=== PATIENT | female | born 1990 | race African-American/Black ===

== ENCOUNTER 2018-07-13 16:21 | Outpatient (CLI) | payer OTHER ==
[~2018-07-13] VITALS: Ht 167.6 cm; Wt 91.2 kg
[2018-07-13 16:39] VITALS: BP 133/82
[2018-07-13] MEDS ORDERED: MAPA500T2 PO (16:44)
[2018-07-13 18:32] LABS: HEMATOCRIT 32.9 % (36.0-47.0); HEMOGLOBIN 10.1 g/dl (12.0-15.5); MEAN CORPUSCULAR HEMOGLOBIN 23.1 pg (27.0-33.0); MEAN CORPUSCULAR HGB CONC 30.7 g/dl (32.0-36.5); MEAN CORPUSCULAR VOLUME 75.3 fl (80.0-96.0); PLATELET COUNT, AUTOMATED 277 10^3/uL (150-450); RED BLOOD COUNT 4.37 10^6/uL (4.00-5.40); WHITE BLOOD COUNT 7.4 10^3/uL (4.0-10.0)
[2018-07-13 18:51] LABS: CHLAMYDIA DNA AMPLIFICATION NEGATIVE (NEGATIVE); GC DNA AMPLIFICATION NEGATIVE (NEGATIVE)
[2018-07-15 11:14] LABS: HIV 1&2 SCREEN CENTAUR NEGATIVE (NEGATIVE); RUBELLA IgG QUALITATIVE IMMUNE (IMMUNE)
[2018-07-17 00:06] LABS: HEMOGLOBIN A 98.2 % (96.4-98.8); HEMOGLOBIN A2 1.8 % (1.8-3.2); HGB SOLUBILITY Negative (Negative)
[2018-07-17] MEDS ORDERED: PREN27TA3 PO (14:13)
[2018-07-17] MEDS ORDERED: TYLE1TAB5 PO (14:13)
[2018-07-17] MEDS ORDERED: TYLE325T5 PO (14:13)
== END 2018-07-13 18:20 | disposition home or self-care (01) ==
LOC: M LDO 16:21 → M LDI 16:48 → M LDO 18:20
PROVIDERS: ATTEND Obstetrics & Gynecology
DX: O26.893 Other specified pregnancy related conditions, third trimester (principal); Z3A.37 37 weeks gestation of pregnancy; M54.9 Dorsalgia, unspecified
CPT/HCPCS: 36415; 82950; 83021; 85027; 85660; 86762; 86780; 86850; 86900; 86901; 87340; 87389; 87491; 87591; G0378; G0463

== ENCOUNTER 2018-07-24 06:03 | Inpatient (IN) | payer OTHER ==
[2018-07-24] VITALS (13 sets, daily range): BP systolic 104–150; BP diastolic 54–103
[~2018-07-24] VITALS: Ht 167.6 cm; Wt 92.0 kg
[~2018-07-24 06:03] MED LIST: MAPA500T2 PO; PREN27TA3 PO; TYLE1TAB5 PO; TYLE325T5 PO
[2018-07-24] MEDS ORDERED: LR 1,000 ML IV SCH ×2 (06:30→13:45)
[2018-07-24 06:50] LABS: HEMOGLOBIN 9.5 g/dl (12.0-15.5); MEAN CORPUSCULAR HEMOGLOBIN 22.9 pg (27.0-33.0); MEAN CORPUSCULAR HGB CONC 31.7 g/dl (32.0-36.5); MEAN CORPUSCULAR VOLUME 72.3 fl (80.0-96.0); PLATELET COUNT, AUTOMATED 310 10^3/uL (150-450); RED BLOOD COUNT 4.15 10^6/uL (4.00-5.40); WHITE BLOOD COUNT 7.9 10^3/uL (4.0-10.0)
[2018-07-24] MEDS ORDERED: BICITRA 30ML SOLN UDC PO ONE (07:45)
[2018-07-24] MEDS ORDERED: LR 1,000 ML IV ONE (07:45)
[2018-07-24] MEDS ORDERED: MORPHINE PRES-FREE INJ 10 MG/10 ML VIAL (J2274) As Ordered ONE (08:02)
[2018-07-24] MEDS ORDERED: OXYTOCIN INJ 10 UNITS/ML VIAL (J2590) As Ordered ONE ×2 (08:03→08:04)
[2018-07-24] MEDS ORDERED: ONDANSETRON 4MG/2ML VIAL (J2405) As Ordered ONE (08:52)
[2018-07-24] MEDS: PRENATAL VITAMINS CHEWABLE TABLET PO SCH (09:00)
[2018-07-24] MEDS ORDERED: MIDAZOLAM INJ 2 MG/2 ML VIAL (J2250) As Ordered ONE (09:03)
[2018-07-24] MEDS ORDERED: KETOROLAC 60 MG/2 ML VIAL (J1885) As Ordered ONE (09:14)
[2018-07-24] MEDS ORDERED: NALBUPHINE HCL 10 MG/ML AMP (J2300) IV PRN (10:30)
[2018-07-24] MEDS ORDERED: fentaNYL 100 MCG/2 ML INJECTION (J3010) IV PRN (10:30)
[2018-07-24] MEDS ORDERED: MEPERIDINE INJ 25 MG/ML VIAL (J2175) IV PRN (10:30)
[2018-07-24] MEDS ORDERED: RHOGAM 300 MCG (1500 IU) INJ (J2790) IM SCH (10:30)
[2018-07-24] MEDS ORDERED: NORCO, ANEXSIA 5/325MG TABLET (HYDROcodone/ACETAMINOPHEN) PO PRN (10:30)
[2018-07-24] MEDS ORDERED: ONDANSETRON 4MG/2ML VIAL (J2405) IV PRN (10:30)
[2018-07-24] MEDS ORDERED: PERCOCET 5MG/325MG TAB PO PRN (10:30)
[2018-07-24] MEDS ORDERED: MEASLES,MUMPS,RUBELLA VACCINE INJ (MMR-II) (90707) SC SCH (10:30)
[2018-07-24] MEDS ORDERED: ADACEL/BOOSTRIX VACCINE (DIPHTH/PERTUSS/ACELL/TETANUS)0.5ML SYR (90715) IM PRN (13:45)
[2018-07-24] MEDS: KETOROLAC 30 MG/ML VIAL (J1885) IV SCH ×2 (14:33→21:09)
[2018-07-24] MEDS: DOCUSATE SODIUM 100 MG CAP PO SCH (21:09)
[2018-07-25] MEDS: KETOROLAC 30 MG/ML VIAL (J1885) IV SCH (03:09)
[2018-07-25 06:04] VITALS: BP 122/69
--- NOTE | 2018-07-25 07:21 | IPNPDOC ---
Progress Note Date of Service: Jul 25, 2018 Progress Note Ms. Vallejo is a 28 yo G3 now P2 who underwent an uncomplicated ERLTCS yesterday and is currently recovering on the unit. She reports overall feeling well this morning. She has some abdominal soreness but the pain medications are helping. Lochia is diminishing. She is is ambulating and tolerating a regular diet. Vitals - VSS, afebrile, normotensive, non tachycardic General - AAOX3, sitting up in bed, NAD Abdomen - Incision covered, minimal strikethrough. Appropriate tenderness to palpation. Fundus firm at U-2. Extremities - No edema UO - Excellent Labs: Pre op H/H 9.5/30.0 ---> pending post op H/H Ms. Vallejo is doing well this morning and is making an appropriate post op recovery. Plan to remove stephenson today and monitor for DTV. Continue to encourage ambulation and breast feeding and IS use. Follow up AM CBC. Continue routine post / post operative care. Anticipate DC home tomorrow if meeting all criteria. Jeremy Bernal DO VS, I&O, 24H, Fishbone Vital Signs/I&O Vital Signs Date Time Temp Pulse Resp B/P (MAP) Pulse Ox O2 Delivery O2 Flow Rate FiO2 07/25/18 06:04 99.4 76 18 122/69 (86) 98 I&O- Last 24 Hours up to 6 AM 07/25/18 06:00 Intake Total 532 ml Output Total 2225 ml Balance -1693 ml Laboratory Data CBC/BMP JEREMY BERNAL DO Jul 25, 2018 07:21
[2018-07-25 07:31] LABS: HEMATOCRIT 25.2 % (36.0-47.0); HEMOGLOBIN 7.8 g/dl (12.0-15.5); MEAN CORPUSCULAR HEMOGLOBIN 22.4 pg (27.0-33.0); MEAN CORPUSCULAR VOLUME 72.4 fl (80.0-96.0); PLATELET COUNT, AUTOMATED 285 10^3/uL (150-450); RED BLOOD COUNT 3.48 10^6/uL (4.00-5.40); WHITE BLOOD COUNT 9.7 10^3/uL (4.0-10.0)
[2018-07-25] MEDS: PRENATAL VITAMINS CHEWABLE TABLET PO SCH (07:40)
[2018-07-25] MEDS: PERCOCET 5MG/325MG TAB PO PRN ×2 (07:43→18:19)
[2018-07-25 10:20] VITALS: BP 131/80
[2018-07-25] MEDS: IBUPROFEN 800 MG TAB PO SCH ×2 (12:09→18:20)
[2018-07-25] MEDS: DOCUSATE SODIUM 100 MG CAP PO SCH ×2 (12:30→20:45)
[2018-07-25 14:38] VITALS: BP 138/82
[2018-07-25 18:00] VITALS: BP 139/95
[2018-07-25 21:49] VITALS: BP 137/74
[2018-07-26 01:52] VITALS: BP 134/80
[2018-07-26] MEDS: IBUPROFEN 800 MG TAB PO SCH ×2 (02:51→11:13)
[2018-07-26 05:46] VITALS: BP 120/81
[2018-07-26] MEDS: PERCOCET 5MG/325MG TAB PO PRN (06:15)
[2018-07-26] MEDS: PRENATAL VITAMINS CHEWABLE TABLET PO SCH (08:17)
[2018-07-26] MEDS: DOCUSATE SODIUM 100 MG CAP PO SCH (08:17)
[2018-07-26] MEDS ORDERED: OXYC1TAB23 PO (09:46)
[2018-07-26] MEDS ORDERED: COLA100C5 PO (09:46)
[2018-07-26] MEDS ORDERED: IBUP-1114 PO (09:46)
--- NOTE | 2018-07-27 14:58 | RO ---
DATE OF OPERATION: 07/24/2018 SURGEON: Joanne Dejesus MD SAT INSTRUCTOR: Ray Bernal DO CLINICAL SERVICE: Obstetrics. INDICATIONS FOR OPERATION: Monie is a 28-year-old G2, now P 2-0-0-2, at 39 weeks 0 day, having a history of prior section that was performed for a nonreassuring heart tracing. We discussed trial of labor after section in the office versus electing for a repeat low transverse section, and she did want repeat section. PREOPERATIVE DIAGNOSIS: Single intrauterine at 39 weeks with history of prior section desiring repeat and declining trial of labor after (TOLAC). POSTOPERATIVE DIAGNOSIS: Single intrauterine at 39 weeks with history of prior section desiring repeat and declining trial of labor after . MATERIAL FORWARDED TO THE LABORATORY FOR EXAMINATION: None. DESCRIPTION OF FINDINGS: Female infant in occupational therapy (OT) presentation. scores 9 and 9. Weight 2990 grams or 6 pounds 9 ounces. Normal-appearing uterus, fallopian tubes, and ovaries. INFECTION CLASSIFICATION: 2. ESTIMATED BLOOD LOSS: 600 mL. INTRAVENOUS (IV) FLUIDS: 1700 mL. URINE OUTPUT: 200 mL of yellow clear urine. OPERATION PERFORMED: Repeat low transverse section. DESCRIPTION OF OPERATION: After obtaining consent, the patient was taken to the operating room. She had a category one heart rate tracing prior to going to the operating room (OR). Spinal anesthesia was administered. Dimas catheter and bilateral sequential compression devices were placed. She was prepped and draped in normal sterile fashion in dorsal supine position with a left lateral tilt. Time-out was performed to confirm patient name, date of , procedure, and indication. The surgical team, nursing staff, anesthesia were all in agreement. Spinal anesthesia was found to be adequate using an Allis clamp. She received 2 grams of IV Ancef prophylactically prior to starting the procedure. Pfannenstiel skin incision was made with the scalpel, carried through to the underlying layer of fascia. The fascia was incised in the midline, and the incision was extended laterally with Dow scissors. Superior and inferior aspects of the fascial incision were grasped with Poppy clamps, elevated, and the underlying rectus muscles were dissected off bluntly and sharply. Peritoneum was entered digitally, and the rectus muscles were in the midline. Peritoneal incision was extended superiorly and inferiorly with good visualization of the bladder. Bladder blade was inserted, and the vesicouterine peritoneum was identified, grasped with pickups, and entered sharply with Metzenbaum scissors. Incision was extended laterally, and bladder flap was created digitally. Bladder blade was reinserted, and the lower uterine segment was scored in a transverse fashion with a scalpel. The uterus was entered bluntly, and the incision was extended with traction with clear amniotic fluid noted. Bladder blade was removed, and the 's head was elevated to the level of the incision with use of vacuum that was only used briefly just to bring the 's head up to the level of the incision. Fundal pressure was applied in conjunction with the vacuum, and the head was delivered atraumatically in the OT position. The anterior shoulder, posterior shoulder, and corpus were delivered without difficulty after removing the vacuum. The nose and mouth were suctioned with bulb suction. Cord was clamped times two and cut. The infant was handed off to the awaiting pediatricians. There was terminal meconium noted only after the was delivered. Placenta was removed with traction on the cord and uterine massage, and the uterus was then exteriorized and cleared of all clot and debris. Uterine incision was repaired with 0 Vicryl suture in a running locking fashion. A second layer of 0 Monocryl was used to close the hysterotomy incision in imbricating fashion. Uterus was inspected, and the incision was noted to be not in the center of the lower uterine segment but actually towards the right lateral aspect. She did have continued areas of oozing, so a few more sutures were used placing [id number] with 0 Vicryl suture until the incision was completely hemostatic. Posterior cul-de-sac was irrigated. The uterus was returned to the abdomen. Gutters were cleared of all clots. Hemostasis was noted. We placed Sandrine along the incision line after noting continued hemostasis, but there was very very very slight oozing, which the Sandrine completely addressed upon observation. The peritoneum was closed using 3-0 Vicryl suture in a running fashion. The fascia was reapproximate with 0 Vicryl suture in a running fashion. Subcutaneous tissue was copiously irrigated. Kiara fascia was reapproximated using 3-0 Vicryl suture in a running fashion. Skin edges were reapproximated using three inverted interrupted stitches using 3-0 Vicryl suture, followed by a running subcuticular stitch using 4-0 Monocryl suture. The incision was cleaned using wet lap, dried with a dry lap. Steri-Strips were applied in usual fashion. Two strips of Telfa were layered on top of the Steri-Strips, followed by a dry sterile towel. Surgical drapes were removed. Sterile towel was removed. Pressure dressing was applied over the entire surgical incision. The vagina was cleared of all blood clot without active bleeding noted. Fundus was firm at U minus two. Sponge, lap, needle counts were all correct times two. T he procedure was without complications. The patient tolerated the procedure well and was taken to the recovery room on labor and delivery in stable condition.
--- NOTE | 2018-07-27 17:14 | DSES ---
DATE OF ADMISSION: 07/24/2018 DATE OF DISCHARGE: 07/26/2018 This is a 28-year-old 3, para 2 admitted for elective repeat lower section, delivered a live female infant, 6 pounds, 9 ounces, 2990 grams, of 9 and 9 at one and five minutes respectively. On her second postoperative day, we discussed phlebitis, cystitis, mastitis, endometritis and cellulitis, diet, exercise, pain management, perineal, breast and wound care. Her admitting hemoglobin 9.5, hematocrit 30.0, and platelets were 310. Discharge hemoglobin 7.8, hematocrit 25.2, and platelets are 285. On discharge, her blood pressure 120/81, respirations 14, pulse 73, temperature is 98.6. The rest examination is unremarkable. Normocephalic, atraumatic. Neck: Full range of motion. Pupils equal and reactive to light. Distal pulses are symmetric. No evidence of deep vein thrombosis (DVT), pulmonary embolism (PE), or superficial phlebitis. Chest is clear bilaterally to bases. No wheezes or rhonchi. No costovertebral angle (CVA) tenderness. Abdomen: Soft, uterus two below. Lochia is moderate and four quadrant bowel sounds are noted. Incision is clean and dry. Perineum is intact. She has no rash, lesions or pruritus. No arthralgia or myalgia. No complaint of joint pain. No cough, wheezes, shortness of breath, or dyspnea on exertion. No nausea, vomiting, diarrhea or constipation. No urgency, frequency or incontinence. She is feeling well, breast-feeding and is anxious for her home. She was discharged with medications and has a two-week incision check and a six-week check. In summary, term gestation, elective repeat section, live female . All questions were answered. The patient was discharged improved.
== END 2018-07-26 13:15 | disposition home or self-care (01) | DRG 773 ==
LOC: M LDI 06:03 → M OBS 12:13
PROVIDERS: ADMIT Obstetrics & Gynecology; ATTEND Obstetrics & Gynecology
PROC: 10D00Z1 Extraction of Products of Conception, Low, Open Approach (ICD-10-PCS; principal; 2018-07-24 08:30)
DX: O34.211 Maternal care for low transverse scar from previous cesarean delivery (principal); Z3A.39 39 weeks gestation of pregnancy; Z37.0 Single live birth

== ENCOUNTER 2018-08-01 21:57 | Emergency (ER) | payer OTHER ==
[~2018-08-01] VITALS: Ht 167.6 cm; Wt 90.9 kg
[~2018-08-01 21:57] MED LIST changes: +COLA100C5 PO; +IBUP-1114 PO; +OXYC1TAB23 PO
[2018-08-01 23:44] LABS: BASO % 0.2 % (0.0-1.0); EOS # 0.1 10^3/uL (0.0-0.50); HEMATOCRIT 26.9 % (36.0-47.0); HEMOGLOBIN 8.1 g/dl (12.0-15.5); LYMPH # 2.1 10^3/uL (1.5-6.5); LYMPH % 32.4 % (24.0-44.0); MEAN CORPUSCULAR HEMOGLOBIN 22.9 pg (27.0-33.0); MEAN CORPUSCULAR HGB CONC 30.1 g/dl (32.0-36.5); MEAN CORPUSCULAR VOLUME 76.2 fl (80.0-96.0); MONO # 0.4 10^3/uL (0.0-0.8); MONO % 5.3 % (0.0-5.0); NEUTROPHILS # 3.9 10^3/uL (1.8-7.7); NEUTROPHILS % 59.8 % (36.0-66.0); PLATELET COUNT, AUTOMATED 359 10^3/uL (150-450); RED BLOOD COUNT 3.53 10^6/uL (4.00-5.40); WHITE BLOOD COUNT 6.6 10^3/uL (4.0-10.0)
[2018-08-01] MEDS ORDERED: NS 1,000 ML IV ONE (23:45)
[2018-08-01] MEDS ORDERED: MORPHINE 4 MG/ML 1ML VIAL/SYRINGE (J2270) IV PRN (23:45)
[2018-08-02 00:07] LABS: ERYTHROCYTE SEDIMENTATION RATE 52 mm/hr (0-20)
[2018-08-02 00:24] LABS: ALBUMIN 2.5 GM/DL (3.2-5.2); ALT/SGPT 14 U/L (12-78); BILIRUBIN,TOTAL 0.4 MG/DL (0.2-1.0); BLOOD UREA NITROGEN 4 MG/DL (7-18); C REACTIVE PROTEIN QUANTITATIV 0.66 MG/DL (0.00-0.30); CALCIUM LEVEL 7.6 MG/DL (8.5-10.1); CARBON DIOXIDE LEVEL 25 MEQ/L (21-32); CHLORIDE LEVEL 108 MEQ/L (98-107); CREATININE FOR GFR 0.86 MG/DL (0.55-1.30); GLOMERULAR FILTRATION RATE > 60.0 (>60); GLUCOSE, FASTING 93 MG/DL (70-100); LIPASE 108 U/L (73-393); POTASSIUM SERUM 3.6 MEQ/L (3.5-5.1); SODIUM LEVEL 141 MEQ/L (136-145); TOTAL PROTEIN 6.5 GM/DL (6.4-8.2)
[2018-08-02] MEDS ORDERED: ISOVUE-370 76% 100ML VIAL (Q9967) As Ordered ONE (00:28)
--- NOTE | 2018-08-02 02:04 | REPVR ---
EXAM: CT Abdomen and Pelvis With Contrast EXAM DATE/TIME: 08/02/2018 12:47 AM CLINICAL HISTORY: 28 years old, female; Abdominal pain; Localized; Right lower quadrant (rlq); Prior surgery; Surgery date: 3-7 days post-operative; Surgery type: C- section 1 wk ago TECHNIQUE: Axial computed tomography images of the abdomen and pelvis with intravenous contrast. All CT scans at this facility use at least one of these dose optimization techniques: automated exposure control; mA and/or kV adjustment per patient size (includes targeted exams where dose is matched to clinical indication); or iterative reconstruction. Coronal and sagittal reformatted images were created and reviewed. CONTRAST: 100 ml of ISOVUE 370 administered intravenously. COMPARISON: No relevant prior studies available. FINDINGS: Lower thorax: Unremarkable. ABDOMEN: Liver: Unremarkable. No liver lesion is seen. The contour of the liver is smooth. No hepatomegaly is noted. Gallbladder and bile ducts: No calcified gallstones are seen. No gallbladder wall thickening, pericholecystic fluid, or pericholecystic inflammatory changes are identified. No dilation of the intrahepatic or extrahepatic bile ducts is noted. Pancreas: Normal. No ductal dilation. Spleen: Normal. No splenomegaly. Adrenals: Normal. No mass. Kidneys and ureters: The kidneys are normal in appearance. No renal lesion is identified. No calculi are seen in the kidneys or ureters. There is no hydronephrosis or hydroureter. There are no wedge-shaped areas of low attenuation in the kidneys to suggest pyelonephritis. There is no renal abscess or perinephric fluid collection. Stomach and bowel: There is no evidence for a bowel obstruction, strangulation, diverticulosis, diverticulitis, colitis, pneumatosis intestinalis, intussusception, volvulus, or perforated viscus. Appendix: Normal. No evidence for appendicitis. Retroperitoneal space: There is no retroperitoneal hemorrhage. PELVIS: Bladder: The distended urinary bladder is normal in appearance. No stones or masses are seen in the bladder. The contour of the bladder is normal. Reproductive: The anteverted uterus is enlarged, which is consistent with a recent post gravid state. There is a lower transverse section scar in the uterus. There are tiny foci of gas in the endometrial cavity and a small to moderate amount of fluid in the endometrial cavity. There is a 13 mm right ovarian cyst, which is most compatible with a follicular cyst. The left ovary is unremarkable. ABDOMEN and PELVIS: Intraperitoneal space: Normal. No free air. No fluid collection. Bones/joints: The imaged bony structures are intact. There is no suspicious osteolytic or osteoblastic lesion. There are degenerative changes involving the pubic symphysis since widening of the pubic symphysis by approximately 10 mm. Soft tissues: There is diastases of the rectus abdominis muscles and a large midline ventral hernia containing loops of small and large bowel. There is subcutaneous edema in the anterior abdominal wall. No drainable soft tissue fluid collection is noted. Vasculature: The abdominal aorta is normal in caliber and patent. The iliac arteries, common femoral arteries, renal arteries, celiac artery, superior mesenteric artery, and inferior mesenteric artery are patent. The renal veins, portal veins, splenic vein, superior mesenteric vein, and inferior mesenteric vein are patent. Lymph nodes: Normal. No enlarged lymph nodes. IMPRESSION: 1. Normal appendix. 2. Diastases of the rectus abdominis muscles and a large midline ventral hernia containing loops of small and large bowel. No bowel obstruction or strangulation. 3. Postoperative changes from a recent section, and there are tiny foci of gas in the endometrial cavity and a small to moderate amount of fluid in the endometrial cavity. 4. 13 mm follicular cyst in the right ovary. Electronically signed by: Ethan Luke On 08/02/2018 02:04:32 AM
[2018-08-02] MEDS ORDERED: NORCOTAB PO (02:19)
[2018-08-02 02:45] VITALS: BP 141/87
--- NOTE | 2018-08-10 20:52 | ED PDOC ---
Post-Departure Follow-Up kina rm faxed formal report of ct abd/p for fu Nika Iqbal MD Aug 10, 2018 20:52
== END 2018-08-02 03:34 | disposition home or self-care (01) ==
LOC: M ED 21:57
DX: N83.01 Follicular cyst of right ovary (principal); D50.0 Iron deficiency anemia secondary to blood loss (chronic); K43.9 Ventral hernia without obstruction or gangrene; J45.909 Unspecified asthma, uncomplicated; F33.9 Major depressive disorder, recurrent, unspecified; F41.9 Anxiety disorder, unspecified
CPT/HCPCS: 36415; 74177; 80053; 81001; 83605; 83690; 85025; 85652; 86140; 96361; 96374; 99284; J2270; Q9967

== ENCOUNTER 2018-10-23 14:17 | Emergency (ER) | payer OTHER ==
[~2018-10-23] VITALS: Ht 167.6 cm; Wt 87.3 kg
[2018-10-23 14:17] VITALS: BP_DIAS 92
[~2018-10-23 14:17] MED LIST changes: +HYDR-3715 PO
[2018-10-23] MEDS ORDERED: NEXP1IMP (14:22)
[2018-10-23] MEDS ORDERED: GNP650TA8 PO (14:22)
[2018-10-23] MEDS ORDERED: diphenhydrAMINE INJ 50MG/ML VIAL (J1200) IV STA (14:33)
[2018-10-23] MEDS ORDERED: METOCLOPRAMIDE INJ 10MG/2ML VIAL (J2765) IV ONE (14:45)
[2018-10-23] MEDS ORDERED: NS 1,000 ML IV ONE (14:45)
[2018-10-23] MEDS ORDERED: KETOROLAC 30 MG/ML VIAL (J1885) IV ONE (15:00)
[2018-10-23 17:16] VITALS: BP_SYST 81
--- NOTE | 2018-10-23 17:51 | REP ---
ULTRASOUND LEFT BREAST: Real-time sonographic evaluation of the left breast performed. The patient is currently breast feeding and has pain at the 4-o'clock to 6-o'clock region of the left breast. At that location, there is fibrocystic tissue with dilated ducts. No fluid collection or abscess is seen. No solid mass is seen. IMPRESSION: ACR 2 benign. Mildly dilated ducts without cystic or solid mass and no fluid collection or abscess. Electronically Signed by Ulysses Bach MD 10/28/2018 11:49 A
--- NOTE | 2018-11-03 13:23 | ED PDOC ---
Post-Departure Follow-Up ft eliecer ob faxed formal report of breast us for fu Nika Iqbal MD November 03, 2018 13:23
== END 2018-10-23 17:18 | disposition home or self-care (01) ==
LOC: M ED 14:17
DX: G43.909 Migraine, unspecified, not intractable, without status migrainosus (principal); N64.4 Mastodynia; J45.909 Unspecified asthma, uncomplicated; Z79.899 Other long term (current) drug therapy
CPT/HCPCS: 76642; 96361; 96374; 96375; 99284; J1200; J1885; J2765

== ENCOUNTER 2019-01-22 09:48 | Emergency (ER) | payer OTHER ==
[~2019-01-22] VITALS: Ht 167.6 cm; Wt 88.9 kg
[~2019-01-22 09:48] MED LIST changes: +GNP650TA8 PO; +NEXP1IMP
[2019-01-22] MEDS ORDERED: METH1TAB40 PO (09:56)
[2019-01-22] MEDS ORDERED: MEDR10TA PO (09:56)
[2019-01-22] MEDS ORDERED: INDO-16 PO (09:56)
[2019-01-22 10:34] LABS: BASO % 0.2 % (0.0-1.0); EOS # 0.1 10^3/uL (0.0-0.50); HEMATOCRIT 34.7 % (36.0-47.0); HEMOGLOBIN 10.4 g/dl (12.0-15.5); LYMPH # 1.6 10^3/uL (1.5-6.5); LYMPH % 36.1 % (24.0-44.0); MEAN CORPUSCULAR HEMOGLOBIN 23.1 pg (27.0-33.0); MEAN CORPUSCULAR VOLUME 76.9 fl (80.0-96.0); MONO # 0.2 10^3/uL (0.0-0.8); MONO % 3.6 % (0.0-5.0); NEUTROPHILS # 2.6 10^3/uL (1.8-7.7); NEUTROPHILS % 57.9 % (36.0-66.0); PLATELET COUNT, AUTOMATED 190 10^3/uL (150-450); RED BLOOD COUNT 4.51 10^6/uL (4.00-5.40); WHITE BLOOD COUNT 4.4 10^3/uL (4.0-10.0)
[2019-01-22 11:02] LABS: BLOOD UREA NITROGEN 11 MG/DL (7-18); CARBON DIOXIDE LEVEL 25 MEQ/L (21-32); CHLORIDE LEVEL 109 MEQ/L (98-107); CREATININE FOR GFR 0.96 MG/DL (0.55-1.30); GLOMERULAR FILTRATION RATE > 60.0 (>60); GLUCOSE, FASTING 98 MG/DL (70-100); HCG, SERUM QUALITATIVE NEGATIVE (NEGATIVE); POTASSIUM SERUM 3.9 MEQ/L (3.5-5.1); SODIUM LEVEL 141 MEQ/L (136-145)
[2019-01-22 13:41] VITALS: BP 142/85
[2019-06-11] MEDS ORDERED: DOCU100C16 PO (14:46)
[2019-06-11] MEDS ORDERED: MIRA3350 PO (14:46)
== END 2019-01-22 13:42 | disposition home or self-care (01) ==
LOC: M ED 09:48
DX: N93.8 Other specified abnormal uterine and vaginal bleeding (principal)

== ENCOUNTER 2019-03-19 20:04 | Emergency (ER) | payer OTHER ==
[~2019-03-19] VITALS: Ht 167.6 cm; Wt 89.1 kg
[~2019-03-19 20:04] MED LIST changes: +INDO-16 PO; +MEDR10TA PO; +METH1TAB40 PO
[2019-03-19] MEDS ORDERED: NS 1,000 ML IV ONE (21:00)
[2019-03-19 21:48] LABS: HEMATOCRIT 32.9 % (36.0-47.0); HEMOGLOBIN 9.8 g/dl (12.0-15.5); MEAN CORPUSCULAR HEMOGLOBIN 22.7 pg (27.0-33.0); MEAN CORPUSCULAR HGB CONC 29.8 g/dl (32.0-36.5); MEAN CORPUSCULAR VOLUME 76.3 fl (80.0-96.0); PLATELET COUNT, AUTOMATED 388 10^3/uL (150-450); RED BLOOD COUNT 4.31 10^6/uL (4.00-5.40); WHITE BLOOD COUNT 5.5 10^3/uL (4.0-10.0)
[2019-03-19 22:14] LABS: ALBUMIN 3.9 GM/DL (3.2-5.2); BILIRUBIN,DIRECT 0.1 MG/DL (0.0-0.2); BILIRUBIN,TOTAL 0.4 MG/DL (0.2-1.0); TOTAL PROTEIN 8.2 GM/DL (6.4-8.2)
[2019-03-19] MEDS ORDERED: ISOVUE-370 76% 100ML VIAL (Q9967) As Ordered ONE (22:16)
--- NOTE | 2019-03-19 23:01 | REPVR ---
PROCEDURE INFORMATION: Exam: CT Abdomen and pelvis with contrast Exam date and time: 03/19/2019 10:34 PM Clinical history: 29 years old, female; Abdominal pain; Generalized; Prior surgery; Surgery date: <1 month; Surgery type: Hernia repair sept 10th; Additional info: Diffuse abdominal pain, following hernia repair TECHNIQUE: Imaging protocol: Computed tomography of the abdomen and pelvis with intravenous contrast. Radiation optimization: All CT scans at this facility use at least one of these dose optimization techniques: automated exposure control; mA and/or kV adjustment per patient size (includes targeted exams where dose is matched to clinical indication); or iterative reconstruction. Contrast material: ISOVUE 370; Contrast volume: 100 ml; Contrast route: IV; COMPARISON: CT ABD/PEL W/IV CONTRAST ONLY 08/02/2018 12:33 AM FINDINGS: Liver: There is a diffuse decrease in hepatic parenchymal density, consistent with fatty infiltration. Gallbladder and bile ducts: The gallbladder is incompletely distended. This is most likely related to incomplete fasting. Clinical correlation to exclude gallbladder pathology suggested. Pancreas: Normal. No ductal dilation. Spleen: Normal. No splenomegaly. Adrenals: Normal. No mass. Kidneys and ureters: Normal. No hydronephrosis. Stomach and bowel: There is increased feces throughout the colon consistent with constipation. Appendix: No evidence of appendicitis. Intraperitoneal space: Unremarkable. No free air. No significant fluid collection. Vasculature: Unremarkable. No abdominal aortic aneurysm. Lymph nodes: Unremarkable. No enlarged lymph nodes. Bladder: Unremarkable as visualized. Reproductive: System the left ovary measures 3.5 cm likely representing a functional cyst. Bones/joints: Unremarkable. No acute fracture. Soft tissues: The ventral abdominal wall hernia. Increased density demonstrated in the periumbilical soft tissues possibly secondary to recent surgery. Infection and/or incarceration of a recurrent hernia to be excluded clinically. IMPRESSION: 1. There is a diffuse decrease in hepatic parenchymal density, consistent with fatty infiltration. 2. The gallbladder is incompletely distended. This is most likely related to incomplete fasting. Clinical correlation to exclude gallbladder pathology suggested. 3. The ventral abdominal wall hernia. Increased density demonstrated in the periumbilical soft tissues possibly secondary to recent surgery. Infection and/or incarceration of a recurrent hernia to be excluded clinically. 4. There is increased feces throughout the colon consistent with constipation. Electronically signed by: Lior Gary On 03/19/2019 23:00:32 PM
[2019-03-20 00:01] VITALS: BP 156/100
== END 2019-03-20 00:03 | disposition home or self-care (01) ==
LOC: M ED 20:04
DX: K59.00 Constipation, unspecified (principal); K43.9 Ventral hernia without obstruction or gangrene; K62.5 Hemorrhage of anus and rectum; D64.9 Anemia, unspecified; R11.0 Nausea; Z98.890 Other specified postprocedural states; I10 Essential (primary) hypertension; K64.9 Unspecified hemorrhoids; K60.2 Anal fissure, unspecified; Z87.42 Personal history of other diseases of the female genital tract
CPT/HCPCS: 36415; 74177; 80047; 80076; 81002; 81025; 83690; 85027; 93005; 96360; 96361; 99284; G0463; Q9967

== ENCOUNTER 2019-05-07 10:55 | Emergency (ER) | payer OTHER ==
[~2019-05-07] VITALS: Ht 167.6 cm; Wt 90.4 kg
[2019-05-07] MEDS ORDERED: BCP PO (11:00)
[2019-05-07] MEDS ORDERED: PRED10TA2 PO (15:52)
[2019-05-07] MEDS ORDERED: GABA-843 PO (15:52)
[2019-05-07] MEDS ORDERED: GABAPENTIN 300 MG CAP PO ONE (16:00)
[2019-05-07] MEDS ORDERED: predniSONE 20 MG TAB PO ONE (16:00)
[2019-05-07 16:12] VITALS: BP 143/94
== END 2019-05-07 16:13 | disposition home or self-care (01) ==
LOC: M ED 10:55
DX: M54.42 Lumbago with sciatica, left side (principal); M25.552 Pain in left hip; Z79.3 Long term (current) use of hormonal contraceptives

== ENCOUNTER 2019-06-29 12:33 | Day surgery (SDC) | payer OTHER ==
[~2019-06-29] VITALS: Ht 167.6 cm; Wt 84.8 kg
[~2019-06-29 12:33] MED LIST changes: +BCP PO; +DOCU100C16 PO; +GABA-843 PO; +MIRA3350 PO; +NS 1,000 ML IV ONE; +PRED10TA2 PO
[2019-06-29] MEDS ORDERED: propofoL 200 MG/20 ML VIAL As Ordered ONE (13:57)
[2019-06-29] MEDS ORDERED: LIDOCAINE 2% INJ 100 MG/5 ML SDV (FOR ANES.) As Ordered ONE (13:57)
--- NOTE | 2019-06-29 15:08 | ROOR ---
Patient Name: Monie Vallejo Procedure Date: 06/29/2019 2:22 PM Date of : 1990 Age: 29 Room: [facility] Gender: Female Note Status: Finalized Procedure: Upper GI endoscopy Indications: Heartburn, Suspected gastro-esophageal reflux disease Providers: Gentry Larose MD Referring MD: MAT RIVERO MD Requesting Provider: Medicines: Monitored Anesthesia Care Complications: No immediate complications. Procedure: Pre-Anesthesia Assessment: - Prior to the procedure, a History and Physical was performed, and patient medications and allergies were reviewed. The patient is competent. The risks and benefits of the procedure and the sedation options and risks were discussed with the patient. All questions were answered and informed consent was obtained. Patient identification and proposed procedure were verified by the physician, the nurse and the anesthesiologist in the procedure room. Mental Status Examination: alert and oriented. Airway Examination: normal oropharyngeal airway and neck mobility. Respiratory Examination: clear to auscultation. CV Examination: normal. Prophylactic Antibiotics: The patient does not require prophylactic antibiotics. Prior Anticoagulants: The patient has taken no previous anticoagulant or antiplatelet agents. ASA Grade Assessment: III - A patient with severe systemic disease. After reviewing the risks and benefits, the patient was deemed in satisfactory condition to undergo the procedure. The anesthesia plan was to use monitored anesthesia care (MAC). Immediately prior to administration of medications, the patient was re-assessed for adequacy to receive sedatives. The heart rate, respiratory rate, oxygen saturations, blood pressure, adequacy of pulmonary ventilation, and response to care were monitored throughout the procedure. The physical status of the patient was re-assessed after the procedure. The Endoscope was introduced through the mouth, and advanced to the second part of duodenum. The upper GI endoscopy was accomplished without difficulty. The patient tolerated the procedure well. Findings: The examined esophagus was normal. The Z-line was regular and was found 38 cm from the incisors. Scattered mild inflammation characterized by erythema, friability and granularity was found in the gastric antrum. Biopsies were taken with a cold forceps for Helicobacter pylori testing. Verification of patient identification for the specimen was done by the physician and nurse using the patient's name, date and medical record number. Estimated blood loss was minimal. The duodenal bulb and second portion of the duodenum were normal. Impression: - Normal esophagus. - Z-line regular, 38 cm from the incisors. - Gastritis. Biopsied. - Normal duodenal bulb and second portion of the duodenum. Recommendation: - Patient has a contact number available for emergencies. The signs and symptoms of potential delayed complications were discussed with the patient. Return to normal activities tomorrow. Written discharge instructions were provided to the patient. - Resume previous diet. - Continue present medications. - Follow an antireflux regimen. - Await pathology results. - Telephone GI clinic for pathology results in 2 weeks. - Return to GI clinic if persistent symptoms or new symptoms. - Return to primary care physician. Gentry Larose MD Gentry Larose MD 06/29/2019 3:08:20 PM Electronically signed by Gentry Larose MD Number of Addenda: 0 Note Initiated On: 06/29/2019 2:22 PM Estimated Blood Loss: Estimated blood loss was minimal.
--- NOTE | 2019-06-29 15:14 | ROOR ---
Patient Name: Monie Vallejo Procedure Date: 06/29/2019 2:24 PM Date of : 1990 Age: 29 Room: [facility] Gender: Female Note Status: Finalized Procedure: Colonoscopy Indications: Hematochezia, Iron deficiency anemia Providers: Gentry Larose MD Referring MD: MAT RIVERO MD Requesting Provider: Medicines: Monitored Anesthesia Care Complications: No immediate complications. Procedure: Pre-Anesthesia Assessment: - Prior to the procedure, a History and Physical was performed, and patient medications and allergies were reviewed. The patient is competent. The risks and benefits of the procedure and the sedation options and risks were discussed with the patient. All questions were answered and informed consent was obtained. Patient identification and proposed procedure were verified by the physician, the nurse and the anesthesiologist in the procedure room. Mental Status Examination: alert and oriented. Airway Examination: normal oropharyngeal airway and neck mobility. Respiratory Examination: clear to auscultation. CV Examination: normal. Prophylactic Antibiotics: The patient does not require prophylactic antibiotics. Prior Anticoagulants: The patient has taken no previous anticoagulant or antiplatelet agents. ASA Grade Assessment: II - A patient with mild systemic disease. After reviewing the risks and benefits, the patient was deemed in satisfactory condition to undergo the procedure. The anesthesia plan was to use monitored anesthesia care (MAC). Immediately prior to administration of medications, the patient was re-assessed for adequacy to receive sedatives. The heart rate, respiratory rate, oxygen saturations, blood pressure, adequacy of pulmonary ventilation, and response to care were monitored throughout the procedure. The physical status of the patient was re-assessed after the procedure. The Colonoscope was introduced through the anus and advanced to the terminal ileum, with identification of the appendiceal orifice and IC valve. The colonoscopy was performed without difficulty. The patient tolerated the procedure well. The quality of the bowel preparation was good. The terminal ileum, ileocecal valve, appendiceal orifice, and rectum were photographed. Scope insertion time was 3 minutes. Scope withdrawal time was 9 minutes. The total duration of the procedure was 12 minutes. Findings: The perianal and digital rectal examinations were normal. The terminal ileum appeared normal. A 8 mm polyp was found in the transverse colon. The polyp was sessile. The polyp was removed with a cold snare. Resection and retrieval were complete. Verification of patient identification for the specimen was done by the physician and nurse using the patient's name, date and medical record number. Estimated blood loss was minimal. Non-bleeding external and internal hemorrhoids were found during retroflexion. The hemorrhoids were medium-sized. Impression: - The examined portion of the ileum was normal. - One 8 mm polyp in the transverse colon, removed with a cold snare. Resected and retrieved. - Non-bleeding external and internal hemorrhoids. Recommendation: - Patient has a contact number available for emergencies. The signs and symptoms of potential delayed complications were discussed with the patient. Return to normal activities tomorrow. Written discharge instructions were provided to the patient. - High fiber diet. - Continue present medications. - Use fiber, for example Citrucel, Fibercon, Konsyl or Metamucil. - Await pathology results. - Repeat colonoscopy in 5-10 years for surveillance based on pathology results. - Telephone GI clinic for pathology results in 2 weeks. - Follow up with LOCAL OPERATOR for heavy menstrual bleeding. ( Anemia likely from menorrhagia). - Return to GI clinic if persistent symptoms or new symptoms. - Return to primary care physician. Gentry Larose MD Gentry Larose MD 06/29/2019 3:13:42 PM Electronically signed by Gentry Larose MD Number of Addenda: 0 Note Initiated On: 06/29/2019 2:24 PM Estimated Blood Loss: Estimated blood loss was minimal.
[2019-06-29 15:34] VITALS: BP 134/99
== END 2019-06-29 15:33 | disposition home or self-care (01) ==
LOC: M OPP 12:33
PROVIDERS: ATTEND Internal Medicine Gastroenterology
DX: K64.8 Other hemorrhoids (principal); D12.3 Benign neoplasm of transverse colon; K92.1 Melena; D50.9 Iron deficiency anemia, unspecified; K29.70 Gastritis, unspecified, without bleeding; R12 Heartburn; K21.9 Gastro-esophageal reflux disease without esophagitis

== ENCOUNTER 2019-07-06 08:36 | Day surgery (SDC) | payer OTHER ==
[~2019-07-06] VITALS: Ht 165.1 cm; Wt 87.9 kg
[~2019-07-06 08:36] MED LIST changes: +KETOROLAC 60 MG/2 ML VIAL (J1885) As Ordered ONE; +LIDOCAINE 2% INJ 100 MG/5 ML SDV (FOR ANES.) As Ordered ONE; +LR 1,000 ML IV ONE; -NS 1,000 ML IV ONE; +ONDANSETRON 4MG/2ML VIAL (J2405) As Ordered ONE; +ROCURONIUM BROMIDE 50 MG/5 ML VIAL As Ordered ONE; +dexameTHASONE 4 MG/ML 1ML VIAL (J1100) As Ordered ONE; +propofoL 200 MG/20 ML VIAL As Ordered ONE
[2019-07-06 09:01] LABS: HEMATOCRIT 34.5 % (36.0-47.0); HEMOGLOBIN 10.3 g/dl (12.0-15.5)
[2019-07-06 09:34] LABS: HCG, SERUM QUALITATIVE NEGATIVE (NEGATIVE)
[2019-07-06] MEDS ORDERED: fentaNYL 250 MCG/5 ML INJECTION (J3010) As Ordered ONE (10:30)
[2019-07-06] MEDS ORDERED: MIDAZOLAM INJ 2 MG/2 ML VIAL (J2250) As Ordered ONE (10:30)
[2019-07-06] MEDS ORDERED: BUPIVACAINE HCL 0.25% 30 ML VIAL As Ordered ONE (10:32)
[2019-07-06] MEDS ORDERED: SUGAMMADEX SODIUM 500 MG/5 ML VIAL (BRIDION) As Ordered ONE (10:56)
[2019-07-06] MEDS ORDERED: dexameTHASONE 4 MG/ML 1ML VIAL (J1100) As Ordered ONE (11:34)
[2019-07-06] MEDS: fentaNYL 100 MCG/2 ML INJECTION (J3010) IV PRN ×4 (12:15→12:30)
[2019-07-06] MEDS ORDERED: PERCOCET 5MG/325MG TAB As Ordered ONE (12:17)
[2019-07-06] MEDS ORDERED: fentaNYL 100 MCG/2 ML INJECTION (J3010) As Ordered ONE (12:17)
[2019-07-06] MEDS ORDERED: ONDANSETRON 4MG/2ML VIAL (J2405) IV PRN (12:30)
[2019-07-06] MEDS ORDERED: LR 1,000 ML IV SCH (12:30)
[2019-07-06] MEDS ORDERED: PERCOCET 5MG/325MG TAB PO PRN (12:45)
[2019-07-06 14:43] VITALS: BP 134/87
--- NOTE | 2019-07-06 23:11 | RO ---
DATE OF PROCEDURE: 07/06/2019 SURGEON: Joanne Dejesus MD BEEHIVE KILN CHARCOAL BURNER: Dr. Zheng Baum CLINICAL SERVICE: Gynecology INDICATION FOR OPERATION: Monie is a 29-year-old G2 who has a history of abnormal bleeding, treating with oral contraceptive pill, as well as dysmenorrhea, dyspareunia and pelvic pain. She has done pelvic floor physical therapy, but has continued to have pain and dyspareunia. She has a history of fairly recent umbilical hernia repair that involved mesh, and her history is also significant for two prior sections. PREOPERATIVE DIAGNOSIS: Pelvic pain, dysmenorrhea, dyspareunia. POSTOPERATIVE DIAGNOSIS: Pelvic pain, dysmenorrhea, dyspareunia. Pelvic adhesions. MATERIAL FORWARDED TO THE LAB: None. DESCRIPTION OF FINDINGS: Laparoscopic findings included a normal appearing liver edge and gallbladder. There was a fairly dense adhesion of the omentum to the umbilical area, likely secondary to her (dictation cut off). The fallopian tubes (dictation cut off) ovaries were normal in appearance. The uterus was overall normal in appearance with the exception of scar tissue on the anterior portion consistent with her prior sections. As well, there was an adhesion of the peritoneum to the left aspect of the healed hysterotomy site, but did have some tension to it whereas the right side of the uterus was fairly freely mobile using the uterine manipulator, so we did some lysis of adhesions on the left aspect of the uterus. INFECTION CLASSIFICATION: 2. ESTIMATED BLOOD LOSS: 10 mL. IV FLUIDS: 800 mL lactated Ringer's. URINE OUTPUT: 200 mL of clear yellow urine. OPERATION PERFORMED: Diagnostic laparoscopy, operative laparoscopy with lysis of adhesions. DESCRIPTION OF OPERATION: After obtaining informed consent, Monie was taken to the operating room. General endotracheal anesthesia was established. The patient was placed in low lithotomy position. She was prepped and draped in the usual sterile fashion. Dimas catheter was placed. [place] speculum was placed in the vagina, and visualization of the cervix was obtained. Anterior lip of the cervix was grasped with a single-tooth tenaculum. Cervix was sequentially dilated using Hanks dilators, uterus then sounded to 8 cm. [place] uterine manipulator was placed through the cervix into the uterus and the tenaculum was removed with site hemostasis noted. The bivalve speculum at that point was removed. I then turned my attention to the abdominal portion of the case. A 5 mm incision was made at two fingerbreadths below the left subcostal margin at the midclavicular line given that the patient had a history of hernia repair at the umbilicus. This site was anesthetized with 0.25% Marcaine prior to making the 5 mm incision, and and OptiView trocar was used at a 90-degree angle, advancing the laparoscope through the port and confirming intra-abdominal placement. There was no injury noted below the point of entry. Continuous low carbon dioxide began to establish pneumoperitoneum at 15 mmHg pressure. At that point, we immediately noted the dense adhesion of omentum to the umbilical area, but I was able to move the camera around that area to observe the pelvic organs. But to get a very good view and move bowel up out of the posterior cul-de-sac, we needed to place another trocar, so another 5 mm incision was made in the right lower quadrant, anesthetizing with 0.25% Marcaine prior. We placed the trocar under direct visualization and then performed our pelvic and abdominal survey. The liver edge itself was normal in appearance as well as the gallbladder. I could not visualize the appendix. The uterus had an adhesion of the left peritoneum to the area of the prior hysterotomy scar, and it seemed to have some tension to it when the uterus was pushed up with the uterine manipulator. There was no tension whatsoever on the right side. There was a small adhesion of the serosa just underneath the hysterotomy as well. These were taken down with the LigaSure, and we made space between the area of the peritoneum and the uterus, dissecting the left anterior abdominal wall away from that area to try to keep it as tension-free as possible. The fallopian tubes themselves and ovaries were normal in appearance. Posterior cul-de-sac was normal in appearance. At that point, we terminated the procedure. The instruments were removed from the abdomen, and the ports were removed from the abdomen after removing the pneumoperitoneum. The incisions were approximated with #4-0 Monocryl and Dermabond. All instruments were removed from the vagina. The patient was returned to supine position and all counts were correct times two. The patient tolerated the procedure well, and she was awakened from general anesthesia, taken to the recovery room in stable condition.
== END 2019-07-06 14:50 | disposition home or self-care (01) ==
LOC: M SDC 08:36
PROVIDERS: ATTEND Obstetrics & Gynecology
DX: R10.2 Pelvic and perineal pain (principal); N94.6 Dysmenorrhea, unspecified; N94.10 Unspecified dyspareunia; N73.6 Female pelvic peritoneal adhesions (postinfective); D64.9 Anemia, unspecified; F32.9 Major depressive disorder, single episode, unspecified; J45.909 Unspecified asthma, uncomplicated; G43.909 Migraine, unspecified, not intractable, without status migrainosus
CPT/HCPCS: 36415; 58660; 84703; 85014; 85018; 86850; 86900; 86901; J1100; J1885; J2250; J2405; J3010

== ENCOUNTER → 2019-08-21 | Outpatient (REF) | payer OTHER ==
[~2019-08-21] MED LIST changes: -KETOROLAC 60 MG/2 ML VIAL (J1885) As Ordered ONE; -LIDOCAINE 2% INJ 100 MG/5 ML SDV (FOR ANES.) As Ordered ONE; -LR 1,000 ML IV ONE; -ONDANSETRON 4MG/2ML VIAL (J2405) As Ordered ONE; -ROCURONIUM BROMIDE 50 MG/5 ML VIAL As Ordered ONE; +VITA50005 PO; -dexameTHASONE 4 MG/ML 1ML VIAL (J1100) As Ordered ONE; -propofoL 200 MG/20 ML VIAL As Ordered ONE
[2019-08-21 21:26] LABS: CHLAMYDIA DNA AMPLIFICATION NEGATIVE (NEGATIVE); GC DNA AMPLIFICATION NEGATIVE (NEGATIVE)
== END ==
LOC: M SFHCLERA 10:37
PROVIDERS: ATTEND Nurse Practitioner Family
DX: R30.0 Dysuria (principal)
CPT/HCPCS: 81002; 81025; 87070; 87086; 87661; G0463

== ENCOUNTER → 2019-11-30 | Outpatient (CLI) | payer OTHER ==
[~2019-11-30] MED LIST changes: +CELE100C PO
[2019-11-30 17:24] LABS: BASO % 0.2 % (0.0-1.0); EOS # 0.1 10^3/uL (0.0-0.5); HEMATOCRIT 37.5 % (36.0-47.0); HEMOGLOBIN 12.1 g/dl (12.0-15.5); LYMPH # 1.9 10^3/uL (1.5-5.0); LYMPH % 38.1 % (24.0-44.0); MEAN CORPUSCULAR HEMOGLOBIN 26.6 pg (27.0-33.0); MEAN CORPUSCULAR HGB CONC 32.3 g/dl (32.0-36.5); MEAN CORPUSCULAR VOLUME 82.4 fl (80.0-96.0); MONO # 0.3 10^3/uL (0.0-0.8); MONO % 5.2 % (0.0-5.0); NEUTROPHILS # 2.8 10^3/uL (1.5-8.5); NEUTROPHILS % 54.9 % (36.0-66.0); PLATELET COUNT, AUTOMATED 275 10^3/uL (150-450); RED BLOOD COUNT 4.55 10^6/uL (4.00-5.40)
[2019-11-30 17:49] LABS: PERCENT SATURATION 23.9 % (13.2-45.0)
== END ==
LOC: M LAB 16:12
PROVIDERS: ATTEND Internal Medicine Medical Oncology
DX: D50.9 Iron deficiency anemia, unspecified (principal)

== ENCOUNTER → 2020-02-15 | Outpatient (CLI) | payer OTHER ==
[2020-02-15 15:05] LABS: BASO % 0.2 % (0.0-1.0); EOS # 0.1 10^3/uL (0.0-0.5); EOS % 1.2 % (0.0-3.0); HEMATOCRIT 39.4 % (36.0-47.0); HEMOGLOBIN 12.8 g/dl (12.0-15.5); LYMPH # 1.7 10^3/uL (1.5-5.0); MEAN CORPUSCULAR HEMOGLOBIN 27.8 pg (27.0-33.0); MEAN CORPUSCULAR HGB CONC 32.5 g/dl (32.0-36.5); MEAN CORPUSCULAR VOLUME 85.7 fl (80.0-96.0); MONO # 0.2 10^3/uL (0.0-0.8); MONO % 4.3 % (0.0-5.0); NEUTROPHILS # 3.1 10^3/uL (1.5-8.5); NEUTROPHILS % 59.9 % (36.0-66.0); PLATELET COUNT, AUTOMATED 325 10^3/uL (150-450); WHITE BLOOD COUNT 5.1 10^3/uL (4.0-10.0)
[2020-02-15 15:36] LABS: PERCENT SATURATION 33.8 % (13.2-45.0)
[2020-02-17 06:09] LABS: IGASUB2 175.5 mg/dL (73.2-301.2); IGASUB3 30.2 mg/dL (13.4-97.9); IgA SERUM (part of Subclasses) 224 mg/dL (87-352); TISSUE TRANSGLUTAMINASE IgA <2 U/mL (0-3)
== END ==
LOC: M LAB 13:39
PROVIDERS: ATTEND Internal Medicine Gastroenterology
DX: K62.5 Hemorrhage of anus and rectum (principal); D64.9 Anemia, unspecified

== ENCOUNTER → 2020-05-02 | Outpatient (CLI) | payer OTHER ==
--- NOTE | 2020-05-04 11:45 | ECHO ---
DATE OF PROCEDURE: 05/02/2020 Age: 30 Gender: Female Height: 66 inches Weight: 191 pounds Body surface area: 1.96 m2 PATIENT LOCATION: Outpatient. REFERRING PHYSICIAN: Mario Alberto Villalobos MD. INDICATION: Murmur. MEASUREMENTS: 2D Measurements: RV 3.6 cm LV 4.2 cm Septum 0.8 cm Posterior wall 0.8 cm Aortic Root 2.3 cm LA 3.0 cm LVEF 70-75% Doppler Measurements: AV 1.67 msec LVOT 1.15 msec LVOT diameter 1.7 cm MV-E 112, A 82, E/A ratio 1.4 Early mitral deceleration time 151 msec E prime medial 8.2, A prime medial 8, E prime lateral 14.3 Average E/E prime ratio 10/PCWP 14.2 mmHg PV 1.1 msec Pulmonary artery acceleration time 151 msec RVSP 27 mmHg IVC 2.1 cm COMMENTS: Normal sinus rhythm/sinus bradycardia without intraventricular conduction disturbance. Technically challenging study in light of the patients body habitus, but diagnostically useful information was still obtained. M-mode and two-dimensional echocardiography was performed with pulse, continuous wave, color flow, and tissue Doppler studies. Normal left ventricular size, wall thickness, and hyperkinetic wall motion. Normal left atrial size and Doppler assessment of left ventricular (LV) diastolic function and estimated mean left atrial pressure. Normal right heart chamber sizes and motion with normal estimated pulmonary arterial pressure. Normal inferior vena cava (IVC) size with adequate respiratory collapse against an elevated central venous pressure. Normal aortic dimensions. Normal appearing and functioning aortic valve. Normal appearing mitral valvular apparatus with adequate leaflet excursion and no posterior systolic buckling, but mild posteriorly directed mitral insufficiency. Normal appearing tricuspid valve with very mild insufficiency. No apparent intracardiac mass or pericardial effusion. The above test findings are not definitely outside normal limits. I suspect her murmur is actually flow related/physiologic. MTDD
== END ==
LOC: M CARPUL 10:28
PROVIDERS: ATTEND Internal Medicine
DX: R01.1 Cardiac murmur, unspecified (principal)